=== PATIENT | female | born 1995 | race Caucasian/White ===

== ENCOUNTER 2016-07-30 15:34 | Emergency (ER) | payer SELFPAY ==
[2016-07-30 16:21] LABS: URINE BILIRUBIN NEGATIVE (NEGATIVE); URINE BLOOD NEGATIVE (NEGATIVE); URINE GLUCOSE (UA) NEGATIVE (NEGATIVE); URINE LEUKOCYTE ESTERASE TRACE (NEGATIVE); URINE NITRITE NEGATIVE (NEGATIVE); URINE PROTEIN NEGATIVE (NEGATIVE); URINE UROBILINOGEN NORMAL (0-1 mg/dl)
[2016-07-30 16:23] LABS: HCG,QUALITATIVE URINE NEGATIVE
[2016-07-30] MEDS ORDERED: CEFTRIAXONE SODIUM 250 MG VIAL ONE (16:30)
[2016-07-30] MEDS ORDERED: AZITHROMYCIN 250 MG TABLET ONE (16:30)
[2016-07-30 16:37] LABS: URINE APPEARANCE SL CLOUDY; URINE COLOR DARK YELLOW; URINE RBC 0 /hpf
[2016-07-30 16:38] LABS: URINE BACTERIA RARE; URINE WBC 0-2 /hpf
[2016-07-31 14:18] LABS: CHLAMYDIA BD Negative (Negative); N.GONORRHOEAE BD Negative (Negative); SOURCE Cervix/Endocrvx (())
== END 2016-07-30 17:06 | disposition home or self-care (01) ==
LOC: ED 15:34
DX: N76.6 Ulceration of vulva (principal); N89.8 Other specified noninflammatory disorders of vagina; N83.209 Unspecified ovarian cyst, unspecified side; F17.210 Nicotine dependence, cigarettes, uncomplicated
CPT/HCPCS: 87491; 87591; 81025; 81001; 87210; 99283 ×2; 96372; J0696; A9270